=== PATIENT | female | born 1970 | race Caucasian/White ===

== ENCOUNTER → 2017-08-29 | Outpatient (CLI) | payer BC | LOC: FIMAGING 12:19 | PROVIDERS: ATTEND Obstetrics & Gynecology | DX: Z12.31 Encounter for screening mammogram for malignant neoplasm of breast (principal) | CPT/HCPCS: G0202 ==

== ENCOUNTER → 2017-09-10 | Outpatient (CLI) | payer BC | LOC: FIMAGING 10:14 | PROVIDERS: ATTEND Obstetrics & Gynecology | DX: R59.1 Generalized enlarged lymph nodes (principal) ==

== ENCOUNTER 2018-09-01 07:22 | Emergency (ER) | payer BC ==
[2018-09-01] MEDS ORDERED: ONDANSETRON 4 MG/2 ML VIAL ONE (07:37)
[2018-09-01] MEDS ORDERED: NS 1,000 ML IV ONE (07:45)
[2018-09-01] MEDS ORDERED: ONDANSETRON 4 MG/2 ML VIAL IVP ONE (07:45)
[2018-09-01 08:02] LABS: PLATELET COUNT 260 10^3/uL (150-400)
[2018-09-01] MEDS ORDERED: KETOROLAC 30 MG/1 ML SDV ONE (08:15)
[2018-09-01] MEDS ORDERED: KETOROLAC 30 MG/1 ML SDV IVP ONE (08:16)
--- NOTE | 2018-09-01 08:16 | EDPHY ---
H & P Time Seen by Provider: 09/01/18 07:29 HPI/ROS: HPI Vaginal bleeding, right sided back pain. 48-year-old female by private vehicle. She complains of vaginal bleeding which started several days ago and stopped yesterday, she reports that her menstruation came 2 weeks early, she also complains of nausea and atraumatic right lower back pain, onset yesterday. The back pain is described as her right lateral SI joint area with some radiation into her right lateral buttock area. She has not had any bowel or bladder incontinence. She denies any loss of sensation or weakness in her lower extremities. She has not had a fever. No urinary complaints. She has no history of malignancy. There is no history of trauma. She has not had a fever. She reports she had some dry heaving and association with her nausea today. ROS: Constitutional: No fever, no chills. No weakness. Eyes: No discharge. No changes in vision. ENT: No sore throat. No nasal congestion or rhinorrhea. Respiratory: No cough. No shortness of breath. Cardiac: No chest pain, no palpitations. Gastrointestinal: No abdominal pain, as above, no diarrhea. Genitourinary: No hematuria. No dysuria or increased frequency with urination. As above. Musculoskeletal: As above. No neck pain. No myalgias or arthralgias. Skin: No rashes. Neurological: No headache. No focal weakness or altered sensation. Past medical history: She denies any significant past medical history. She is not on any prescription medications. Social history: Nonsmoker. Here with her . No alcohol. 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 Physical Exam: General Appearance: Alert, she appears uncomfortable but not in distress. This patient is responding to questions appropriately and in full sentences. This patient appears well-hydrated and well-nourished. Eyes: Pupils equal and round no pallor or injection. No lid edema, erythema or injection. Back exam: No midline cervical, thoracic, lumbar or sacral tenderness on palpation. She does have some vague tenderness on palpation with muscle tightness over the right lateral SI joint area. No soft tissue changes. She has a negative same side and cross side straight leg raise test. She is neurovascularly intact in all myotomes in dermatomes of the bilateral lower extremities. Respiratory: There are no retractions, lungs are clear to auscultation with good air movement bilaterally. Cardiovascular: Regular rate and rhythm. No murmur. Gastrointestinal: Abdomen is soft and nontender, no masses, bowel sounds normal. No focal tenderness at McBurney's point. No Pedroza sign. Neurological: Motor sensory function is grossly intact. Cranial nerves are normal. Gait is normal. Skin: Warm and dry, no rashes. Musculoskeletal: Neck is supple and nontender. Extremities are symmetrical. All joints range without pain or impingement. Psychiatric: No agitation. No depression. Database: EKG: Imaging: Pelvic ultrasound: Uterine fibroids, 5 cm left ovarian cyst. Otherwise normal blood flow to both ovaries. Otherwise an unremarkable study. Results were discussed with staff radiologist Dr. Jeff Salazar. Procedures: Emergency department course: IV was placed. Her triage vital signs were reviewed and are normal. She is afebrile. She was started on 1 L of IV normal saline to be given over the next hour. She was initially given 4 mg of IV Zofran. She has no contraindications to NSAIDs. She will be given 30 mg of IV Toradol as well. 9:00 a.m., patient re-evaluated. She was up and ambulatory to the bathroom to give us a urine sample. She appears much more comfortable at this time. 9:40 a.m., patient re-evaluated, resting comfortably at this time. Results of her diagnostic workup discussed with her and her . Her presentation is consistent with a musculoskeletal etiology of her back pain, likely a right- sided sacroiliac strain. I discussed results of her ultrasound in detail. She has a follow-up appointment with her OBGYN at [facility] scheduled for this coming Friday. She feels comfortable going home at this time with her . I will prescribe her high-dose ibuprofen as well as Flexeril over the next 3 days. Return to emergency department precautions were thoroughly reviewed with her. Follow-up with her OBGYN as scheduled was stressed. All of her questions were answered. The patient was discharged home in good condition with her . Differential Diagnosis: The differential diagnosis on this patient includes but is not limited to uterine fibroids, sacroiliac strain, dysfunctional uterine bleeding. Ectopic , pyelonephritis, ureterolithiasis, epidural compression syndrome, traumatic spinal injury unlikely. This represents a partial list of diagnoses considered. These considerations are based on history, physical exam, past history, reassessment and diagnostic testing. Smoking Status: Never smoked Constitutional: Initial Vital Signs Temperature (C) 36.5 C 09/01/18 07:24 Heart Rate 57 L 09/01/18 07:24 Respiratory Rate 16 09/01/18 07:24 Blood Pressure 115/72 09/01/18 07:24 O2 Sat (%) 97 09/01/18 07:24 O2 Delivery Mode Room Air Allergies/Adverse Reactions: No Known Allergies Allergy (Unverified 09/01/18 07:27) Home Medications: Medication Instructions Recorded Cyclobenzaprine [Flexeril 10 MG 10 mg PO TID #9 tab 09/01/18 (*)] Medical Decision Making - Diagnostics Imaging Results: Imaging Impressions Pelvic/Renal Ultrasound 09/01/18 07:28 Impression: 1. No acute findings. 2. 5.2-cm simple left ovarian cyst. Annual follow up is recommended for a cyst of this size in a premenopausal patient. 3. Fibroid uterus. Findings discussed with Dr. Kevin Chakraborty on September 01, 2018 at 0855 hours. - Data Points Laboratory Results: Laboratory Results 09/01/18 07:45 09/01/18 07:45 09/01/18 09/01/18 09/01/18 09:00 07:45 07:45 WBC RBC Hgb Hct MCV MCH MCHC RDW Plt Count MPV Neut % (Auto) Lymph % (Auto) Sac % (Auto) Eos % (Auto) Baso % (Auto) Nucleat RBC Rel Count Absolute Neuts (auto) Absolute Lymphs (auto) Absolute Monos (auto) Absolute Eos (auto) Absolute Basos (auto) Absolute Nucleated RBC Immature Gran % Immature Gran # Sodium 138 mEq/L mEq/L (135-145) Potassium 4.0 mEq/L mEq/L (3.3-5.0) Chloride 104 mEq/L mEq/L (97-110) Carbon Dioxide 25 mEq/l mEq/l (22-31) Anion Gap 9 mEq/L mEq/L (6-14) BUN 17 mg/dL mg/dL (7-23) Creatinine 0.7 mg/dL mg/dL (0.6-1.0) Estimated GFR > 60 Glucose 145 mg/dL H mg/dL (70-100) Calcium 9.3 mg/dL mg/dL (8.5-10.4) Beta HCG, Qual NEGATIVE Urine Color YELLOW Urine Appearance HAZY Urine pH 5.0 (5.0-7.5) Ur Specific Kincaid 1.019 (1.002-1.030) Urine Protein NEGATIVE (NEGATIVE) Urine Ketones NEGATIVE (NEGATIVE) Urine Blood NEGATIVE (NEGATIVE) Urine Nitrate NEGATIVE (NEGATIVE) Urine Bilirubin NEGATIVE (NEGATIVE) Urine Urobilinogen NEGATIVE EU EU (0.2-1.0) Ur Leukocyte Esterase NEGATIVE (NEGATIVE) Urine RBC 1-3 /hpf /hpf (0-3) Urine WBC 3-5 /hpf H /hpf (0-3) Ur Epithelial Cells TRACE /lpf /lpf (NONE-1+) Hyaline Casts 1-5 /lpf /lpf (0-1) Urine Mucus 2+ /lpf H /lpf (NONE-1+) Urine Glucose NEGATIVE (NEGATIVE) 09/01/18 07:45 WBC 6.50 10^3/uL 10^3/uL (3.80-9.50) RBC 4.24 10^6/uL 10^6/uL (4.18-5.33) Hgb 13.1 g/dL g/dL (12.6-16.3) Hct 38.2 % % (38.0-47.0) MCV 90.1 fL fL (81.5-99.8) MCH 30.9 pg pg (27.9-34.1) MCHC 34.3 g/dL g/dL (32.4-36.7) RDW 13.2 % % (11.5-15.2) Plt Count 260 10^3/uL 10^3/uL (150-400) MPV 10.0 fL fL (8.7-11.7) Neut % (Auto) 51.7 % % (39.3-74.2) Lymph % (Auto) 34.2 % % (15.0-45.0) Sac % (Auto) 8.5 % % (4.5-13.0) Eos % (Auto) 4.6 % % (0.6-7.6) Baso % (Auto) 0.8 % % (0.3-1.7) Nucleat RBC Rel Count 0.0 % % (0.0-0.2) Absolute Neuts (auto) 3.37 10^3/uL 10^3/uL (1.70-6.50) Absolute Lymphs (auto) 2.22 10^3/uL 10^3/uL (1.00-3.00) Absolute Monos (auto) 0.55 10^3/uL 10^3/uL (0.30-0.80) Absolute Eos (auto) 0.30 10^3/uL 10^3/uL (0.03-0.40) Absolute Basos (auto) 0.05 10^3/uL 10^3/uL (0.02-0.10) Absolute Nucleated RBC 0.00 10^3/uL 10^3/uL (0-0.01) Immature Gran % 0.2 % % (0.0-1.1) Immature Gran # 0.01 10^3/uL 10^3/uL (0.00-0.10) Sodium Potassium Chloride Carbon Dioxide Anion Gap BUN Creatinine Estimated GFR Glucose Calcium Beta HCG, Qual Urine Color Urine Appearance Urine pH Ur Specific Kincaid Urine Protein Urine Ketones Urine Blood Urine Nitrate Urine Bilirubin Urine Urobilinogen Ur Leukocyte Esterase Urine RBC Urine WBC Ur Epithelial Cells Hyaline Casts Urine Mucus Urine Glucose Medications Given: Discontinued Medications Sodium Chloride (Ns) 1,000 mls @ 0 mls/hr IV ONCE ONE PRN Reason: Wide Open Stop: 09/01/18 07:46 Last Admin: 09/01/18 07:46 Dose: 1,000 mls Ketorolac Tromethamine (Toradol) 30 mg IVP EDNOW ONE Stop: 09/01/18 08:17 Last Admin: 09/01/18 08:17 Dose: 30 mg Ondansetron HCl (Zofran) 4 mg IVP EDNOW ONE Stop: 09/01/18 07:46 Last Admin: 09/01/18 07:46 Dose: 4 mg Departure - Departure Disposition: Home, Routine, Self-Care Clinical Impression: Sacroiliac strain, Dysfunctional uterine bleeding, Ovarian cyst Condition: Good Instructions: Low Back Strain (ED) Additional Instructions: Read and follow provided instructions. Follow-up with your OBGYN on Friday as scheduled for re-evaluation. Have them review your ultrasound results. They should be aware of your left ovarian cyst. Follow-up with your primary care physician for evaluation of your back pain in the next 1-2 days. Take muscle relaxer medication as prescribed. This medication may make you drowsy. You should not drive while taking this medication. You can start taking ibuprofen this afternoon after 5:00 p.m.. Ibuprofen dosing : 600 mg every 6 hours with meals for the next 3 days only. Take only as needed for pain. Return to the emergency department for re-evaluation for worsening pain, uncontrolled pain, fever or other serious concerns. Return to the emergency department for re-evaluation if you are still having discomfort in your back after 3 days. Referrals: NONE *PRIMARY CARE P,. [Primary Care Provider] - As per Instructions Prescriptions: Cyclobenzaprine [Flexeril 10 MG (*)] 10 mg PO TID #9 tab
[2018-09-01 10:13] VITALS: BP 108/67
== END 2018-09-01 10:00 | disposition home or self-care (01) ==
DX: S33.6XXA Sprain of sacroiliac joint, initial encounter (principal); X58.XXXA Exposure to other specified factors, initial encounter; N93.8 Other specified abnormal uterine and vaginal bleeding; N83.202 Unspecified ovarian cyst, left side; D25.9 Leiomyoma of uterus, unspecified
CPT/HCPCS: 96374; J1885; J2405

== ENCOUNTER → 2018-09-16 | Outpatient (CLI) | payer BC | LOC: FIMAGING 10:00 | PROVIDERS: ATTEND Obstetrics & Gynecology | DX: O26.619 Liver and biliary tract disorders in pregnancy, unspecified trimester (principal); R10.11 Right upper quadrant pain ==

== ENCOUNTER → 2018-09-18 | Outpatient (CLI) | payer BC | LOC: FIMAGING 13:33 | PROVIDERS: ATTEND Obstetrics & Gynecology | DX: Z12.31 Encounter for screening mammogram for malignant neoplasm of breast (principal) ==